=== PATIENT | male | born 2000 | race Caucasian/White ===

== ENCOUNTER 2021-06-27 03:34 | Emergency (ER) | payer OTHER ==
[~2021-06-27] VITALS: Ht 177.8 cm; Wt 59.0 kg
[2021-06-27 03:49] VITALS: BP 125/82
--- NOTE | 2021-06-27 03:56 | NUR ---
pt came in c/o right elbow abscess, stating abscess does not let him bend his arm. pt is a/o x3.
== END 2021-06-27 04:12 | disposition home or self-care (01) ==
LOC: ER 03:34
DX: L98.9 Disorder of the skin and subcutaneous tissue, unspecified (principal); M25.521 Pain in right elbow; Z60.2 Problems related to living alone